=== PATIENT | female | born 1975 | race Caucasian/White ===

== ENCOUNTER 2024-06-27 09:55 | Observation (INO) ==
--- NOTE | 2024-06-27 11:11 | EKG ---
Test Reason : SURGICAL CLEARENCE Blood Pressure : */* mmHG Vent. Rate : 92 BPM Atrial Rate : 92 BPM P-R Int : 130 ms QRS Dur : 80 ms QT Int : 346 ms P-R-T Axes : 51 41 32 degrees QTc Int : 427 ms Sinus rhythm with premature atrial complexes Otherwise normal ECG No previous ECGs available Confirmed by Ke Parekh MD ([id number]) on 06/28/2024 6:08:09 AM Referred By: Confirmed By: Ke Parekh MD
[2024-06-27 11:20] LABS: INR 1.21 (0.8-1.3)
[2024-06-27 11:23] LABS: BASOPHILS # (AUTO) 0.1 X10^3/uL (0.0-0.1); BASOPHILS % (AUTO) 0.8 % (0.2-1.0); EOSINOPHILS # (AUTO) 0.1 x10^3/uL (0.0-0.2); EOSINOPHILS % (AUTO) 1.1 % (0.9-2.9); HEMATOCRIT 40.8 % (36.0-47.0); HEMOGLOBIN 13.6 g/dL (12.0-16.0); LYMPHOCYTES # (AUTO) 1.3 X10^3/uL (1.3-2.9); LYMPHOCYTES % (AUTO) 14.5 % (21.0-51.0); MEAN CORPUSCULAR HGB CONC 33.3 g/dL (33.0-35.0); MEAN CORPUSCULAR VOLUME 84.1 fL (80.0-100.0); MEAN PLATELET VOLUME 8.5 fL (7.4-11.0); MONOCYTES # (AUTO) 0.6 x10^3/uL (0.3-0.8); MONOCYTES % (AUTO) 6.3 % (0.0-13.0); NEUTROPHILS # (AUTO) 7.2 x10^3/uL (2.2-4.8); NEUTROPHILS % (AUTO) 77.3 % (42.0-75.0); PLATELET COUNT 344 X10^3/uL (150.0-450.0); RED BLOOD COUNT 4.85 X10^6/uL (3.5-5.4); RED CELL DISTRIBUTION WIDTH 16.9 % (11.6-16.5); WHITE BLOOD COUNT 9.3 X10^3/uL (3.6-10.0)
[2024-06-27 11:25] LABS: ALANINE AMINOTRANSFERASE 36 Units/L (12-78); ALBUMIN 3.4 g/dL (3.4-5.0); ALKALINE PHOSPHATASE 126 Units/L (46-116); ASPARTATE AMINO TRANSFERASE 32 Units/L (15-37); BLOOD UREA NITROGEN 10 mg/dL (7-18); CALCIUM 9.5 mg/dL (8.5-10.1); CHLORIDE 103 mmol/L (98-107); CREATININE 0.95 mg/dL (0.55-1.02); GLUCOSE 94 mg/dL (65-99); POTASSIUM 4.3 mmol/L (3.5-5.1); SODIUM 140 mmol/L (136-145); TOTAL PROTEIN 8.9 g/dL (6.4-8.2); eGFR NON BLACK RACES > 60 (>60)
[2024-06-27] MEDS: LR 1,000 ML IV 1,000 ML IV SCH (11:34)
[2024-06-27] MEDS: TORADOL 30 MG VIAL IVP PRN (12:12)
[2024-06-27 12:13] VITALS: BMI 42.7
--- NOTE | 2024-06-27 12:22 | RAD ---
EXAM:KUBHISTORY:LT OVARIAN CYST, SX CLEARENCE;COMPARISON:No relevant prior studies available.TECHNIQUE:AP supine projectionFINDINGS:Gas and stool in non-distended colon.Gas in scattered loops of non-distended small bowel.No gross free air.No abnormal calcifications.No acute osseous abnormality.Lumbosacral fusion.IMPRESSION:No acute intra-abdominal abnormality detected.Nonobstructive bowel gas patternTHIS IS AN ELECTRONICALLY VERIFIED FINAL REPORT06/27/2024 12:19 PM - Electronically signed by Gagandeep Mena MD
[2024-06-27] MEDS: ROXICODONE TAB 5 MG PO PRN (18:20)
[2024-06-28] MEDS ORDERED: CITROMA PO ONE (07:00)
--- NOTE | 2024-06-28 07:09 | RAD ---
EXAM:CHEST, 1 VIEWHISTORY:SX CLEARENCE, LEFT OVARIAN CYST;COMPARISON:NoneFINDINGS:The cardiomediastinal silhouette is normal in size.No acute airspace disease. No pneumothorax or effusion.No acute osseous abnormality.IMPRESSION:No acute cardiopulmonary disease.THIS IS AN ELECTRONICALLY VERIFIED FINAL REPORT06/28/2024 7:05 AM - Electronically signed by Bernardo Thompson MD
[2024-06-28] MEDS: CITROMA PO ONE (07:54)
--- NOTE | 2024-06-28 08:59 | DR.UPDATE ---
H&P UPDATE (1) Left ovarian cyst: History and Physical Update: Patient was found to have a large 11 to 14 cm cyst of the left ovary, and is scheduled for removal on tomorrow. She continues to have pain associated with the cyst. (2) Lower abdominal pain: History and Physical Update: Patient has pain associated with the ovarian cyst, and is being held for pain management until surgery can be scheduled tomorrow morning. She is on IV fluids, and she is getting IV Toradol, or IV Tylenol, as well as Roxicodone as needed. She will be doing a limited bowel prep today including mag citrate and clear liquids. Review Yes Any changes to H&P?: No Patient was examined?: Yes
[2024-06-28] MEDS: CITROMA ONE (10:36)
--- NOTE | 2024-06-28 11:45 | DR.PROGNOT ---
HOSPITAL PROGRESS NOTE Progress Note for Day of: Progress Note Date: 06/28/24 Chief Complaint Chief Complaint: Hospital day #1, patient has continued pain in the left lower quadrant likely due to the large ovarian cyst. History of Present Illness History of Present Illness: Since admission the patient reports passing gas, having a bowel movement, and improved pain control. Past Medical Family Social History Allergies: Allergies Iodinated Contrast Media [IVP DYE] Adverse Reaction (Verified 06/27/24 11:00) Review Of Systems ROS: No change since H&P Vital Signs Vital Signs: Vital Signs Temperature 97.9 F Pulse Rate [Left Brachial] 86 Respiratory Rate 18 Respiratory Rate 18 Respiratory Rate 17 Blood Pressure [Left Arm] 130/78 O2 Sat by Pulse Oximetry 97 Physical Exam Oriented: Normal Respiratory: Normal Cardiovascular: Normal GI:Auscultation: Normal (Bowel sounds have a normal pitch.) GI:Palpation: Other (Tenderness in the left lower quadrant but abdomen is more s oft and less distended.) Psychiatric: Normal Speech Pattern: Clear and Appropriate Laboratory and Diagnostics 06/27/24 10:43 06/27/24 10:43 Labs: Laboratory WBC 9.3 X10^3/uL (3.6-10.0) 06/27/24 10:43 RBC 4.85 X10^6/uL (3.5-5.4) 06/27/24 10:43 Hgb 13.6 g/dL (12.0-16.0) 06/27/24 10:43 Hct 40.8 % (36.0-47.0) 06/27/24 10:43 MCV 84.1 fL (80.0-100.0) 06/27/24 10:43 MCH 28.0 pg (27.0-34.0) 06/27/24 10:43 MCHC 33.3 g/dL (33.0-35.0) 06/27/24 10:43 RDW 16.9 % (11.6-16.5) H 06/27/24 10:43 Plt Count 344 X10^3/uL (150.0-450.0) 06/27/24 10:43 MPV 8.5 fL (7.4-11.0) 06/27/24 10:43 Neut % (Auto) 77.3 % (42.0-75.0) H 06/27/24 10:43 Lymph % (Auto) 14.5 % (21.0-51.0) L 06/27/24 10:43 [place] % (Auto) 6.3 % (0.0-13.0) 06/27/24 10:43 Eos % (Auto) 1.1 % (0.9-2.9) 06/27/24 10:43 Baso % (Auto) 0.8 % (0.2-1.0) 06/27/24 10:43 Neut # (Auto) 7.2 x10^3/uL (2.2-4.8) H 06/27/24 10:43 Lymph # (Auto) 1.3 X10^3/uL (1.3-2.9) 06/27/24 10:43 [place] # (Auto) 0.6 x10^3/uL (0.3-0.8) 06/27/24 10:43 Eos # (Auto) 0.1 x10^3/uL (0.0-0.2) 06/27/24 10:43 Baso # (Auto) 0.1 X10^3/uL (0.0-0.1) 06/27/24 10:43 Absolute Nucleated RBC 0.0 /100WBC 06/27/24 10:43 PT 15.0 SECONDS (11.8-14.3) 06/27/24 10:43 INR Target Range - 06/27/24 10:43 INR 1.21 (0.8-1.3) 06/27/24 10:43 APTT 30.4 SECONDS (22.9-36.5) 06/27/24 10:43 PTT Comment - 06/27/24 10:43 Sodium 140 mmol/L (136-145) 06/27/24 10:43 Corrected Sodium TNP 06/27/24 10:43 Potassium 4.3 mmol/L (3.5-5.1) 06/27/24 10:43 Chloride 103 mmol/L (98-107) 06/27/24 10:43 Carbon Dioxide 29.0 mmol/L (21-32) 06/27/24 10:43 BUN 10 mg/dL (7-18) 06/27/24 10:43 Creatinine 0.95 mg/dL (0.55-1.02) 06/27/24 10:43 Est GFR (MDRD) Af Amer > 60 (>60) 06/27/24 10:43 Est GFR (MDRD) Non-Af > 60 (>60) 06/27/24 10:43 Glucose 94 mg/dL (65-99) 06/27/24 10:43 Calcium 9.5 mg/dL (8.5-10.1) 06/27/24 10:43 Corrected Calcium TNP 06/27/24 10:43 Total Bilirubin 0.30 mg/dL (0.2-1.0) 06/27/24 10:43 AST 32 Units/L (15-37) 06/27/24 10:43 ALT 36 Units/L (12-78) 06/27/24 10:43 Alkaline Phosphatase 126 Units/L (46-116) H 06/27/24 10:43 Total Protein 8.9 g/dL (6.4-8.2) H 06/27/24 10:43 Albumin 3.4 g/dL (3.4-5.0) 06/27/24 10:43 Globulin 5.5 g/dL (2.5-4.5) H 06/27/24 10:43 Albumin/Globulin Ratio 0.6 Ratio (1.1-2.1) L 06/27/24 10:43 CA 125 Antigen Cancelled 06/26/24 15:03 Blood Type O POSITIVE 06/27/24 10:55 Antibody Screen Negative 06/27/24 10:43 Assessment and Plan 1: Left ovarian cyst 11 to 14 cm in dimension. 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 Patient is scheduled for surgery tomorrow morning at 930. Today she will be doing bowel prep. 2: Hypertension. Patient's blood pressures appear to be normal on no medications in the hospital. Continue to monitor blood pressure. 3: Body mass index of 42. Her body mass index will increase the difficulty of the surgery. Postoperatively she will have DVT precautions. 4: Left lower quadrant pain. Her pain is likely due to the cyst which is present, and she has required IV medicine which she says is helping somewhat. We will continue this medicine as needed.
[2024-06-28] MEDS: ZOFRAN INJ 4 MG VIAL IVP PRN (14:10)
[2024-06-29] MEDS ORDERED: NOZIN NASAL SANITIZER TP ONE (05:41)
[2024-06-29] MEDS: NOZIN NASAL SANITIZER TP ONE ×2 (05:51→09:00)
--- NOTE | 2024-06-29 07:28 | NOTE.OBPRE ---
Pre-op Note IT CONSULTING MANAGER (1) Left ovarian cyst: (2) Lower abdominal pain: Procedure: Planned exploratory laparotomy, with removal of cyst suspected to be in left ovary. Laboratory and Diagnositics 06/27/24 10:43 06/27/24 10:43 Labs: OB Labs WBC 9.3 X10^3/uL (3.6-10.0) 06/27/24 10:43 RBC 4.85 X10^6/uL (3.5-5.4) 06/27/24 10:43 Hgb 13.6 g/dL (12.0-16.0) 06/27/24 10:43 Hct 40.8 % (36.0-47.0) 06/27/24 10:43 MCV 84.1 fL (80.0-100.0) 06/27/24 10:43 MCH 28.0 pg (27.0-34.0) 06/27/24 10:43 MCHC 33.3 g/dL (33.0-35.0) 06/27/24 10:43 Plt Count 344 X10^3/uL (150.0-450.0) 06/27/24 10:43 PT 15.0 SECONDS (11.8-14.3) 06/27/24 10:43 INR 1.21 (0.8-1.3) 06/27/24 10:43 APTT 30.4 SECONDS (22.9-36.5) 06/27/24 10:43 Sodium 140 mmol/L (136-145) 06/27/24 10:43 Potassium 4.3 mmol/L (3.5-5.1) 06/27/24 10:43 Chloride 103 mmol/L (98-107) 06/27/24 10:43 Carbon Dioxide 29.0 mmol/L (21-32) 06/27/24 10:43 BUN 10 mg/dL (7-18) 06/27/24 10:43 Creatinine 0.95 mg/dL (0.55-1.02) 06/27/24 10:43 Glucose 94 mg/dL (65-99) 06/27/24 10:43 Blood Type O POSITIVE 06/27/24 10:55 Summary: Patient understands procedure/risks/benefits/alternatives. Strongly desires to proceed. Consent SOC.
[2024-06-29] MEDS: OFIRMEV IV 1000 MG VIAL 1,000 MG/100 ML VIAL IV PRN ×2 (08:28→11:30)
[2024-06-29] MEDS: LR 1,000 ML IV 1,000 ML IV ONE (09:00)
[2024-06-29] MEDS: DUONEB 0.5 MG/3 MG (3 mL) NEB ONE (09:25)
[2024-06-29] MEDS: PEPCID 20 MG VIAL IVP PRN (09:34)
[2024-06-29] MEDS: ZOFRAN INJ 4 MG VIAL IVP PRN (09:34)
[2024-06-29] MEDS: REGLAN INJ 10 MG VIAL IVP PRN (09:34)
[2024-06-29] MEDS: DANTRIUM IVP PRN (09:34)
[2024-06-29] MEDS: VERSED IVP PRN (09:34)
[2024-06-29] MEDS ORDERED: ZOFRAN INJ 4 MG VIAL IVP PRN ×2 (09:40→12:11)
[2024-06-29] MEDS ORDERED: BENADRYL INJ 50 MG VIAL IVP PRN (09:40)
[2024-06-29] MEDS ORDERED: REGLAN INJ 10 MG VIAL IVP PRN (09:40)
[2024-06-29] MEDS: LR 1,000 ML IV 1,300 ML IV PRN (09:45)
[2024-06-29] MEDS: ANCEF VIAL 1 GRAM IV PRN (10:05)
[2024-06-29] MEDS: ANCEF VIAL 1 GRAM ONE (10:07)
[2024-06-29] MEDS: NS 100 ML IV 100 ML ONE (10:07)
[2024-06-29] MEDS: ZOFRAN INJ 4 MG VIAL ONE (10:09)
[2024-06-29] MEDS ORDERED: ULTANE GAS IN ONE (10:09)
[2024-06-29] MEDS: DECADRON INJ ONE (10:09)
[2024-06-29] MEDS: VERSED ONE (10:09)
[2024-06-29] MEDS ORDERED: KETAMINE HCL ONE (10:09)
[2024-06-29] MEDS ORDERED: PRECEDEX INJ VIAL ONE (10:09)
[2024-06-29] MEDS: FENTANYL VIAL INJ 100 mcg ONE ×2 (10:09→10:40)
[2024-06-29] MEDS: REGLAN INJ 10 MG VIAL ONE (10:09)
[2024-06-29] MEDS: ZEMURON 100 MG VIAL ONE (10:09)
[2024-06-29] MEDS: DIPRIVAN VIAL 20 ML ONE (10:09)
[2024-06-29] MEDS: BRIDION ONE ×2 (10:09→11:14)
[2024-06-29] MEDS: BARHEMSYS INJ ONE ×2 (10:09)
[2024-06-29] MEDS: BENADRYL INJ 50 MG VIAL ONE (10:09)
[2024-06-29] MEDS: PEPCID 20 MG VIAL ONE (10:09)
[2024-06-29] MEDS ORDERED: XYLOCAINE 2 % (PLAIN) PRN (10:17)
[2024-06-29] MEDS: KETAMINE HCL IV PRN (10:34)
[2024-06-29] MEDS: DECADRON INJ IVP PRN (10:41)
[2024-06-29] MEDS: PRECEDEX INJ VIAL IVP PRN (10:42)
[2024-06-29] MEDS: FENTANYL VIAL INJ 100 mcg IVP PRN (10:46)
[2024-06-29] MEDS: OFIRMEV IV 1000 MG VIAL 1,000 MG/100 ML VIAL IV ONE (10:57)
[2024-06-29] MEDS: TORADOL 30 MG VIAL ONE (10:57)
[2024-06-29] MEDS: TORADOL 30 MG VIAL IVP PRN (10:58)
[2024-06-29] MEDS: ZEMURON 100 MG VIAL IVP PRN (10:59)
[2024-06-29] MEDS: DIPRIVAN VIAL 200 ML IVP PRN (11:42)
[2024-06-29] MEDS: BRIDION IVP PRN (11:49)
[2024-06-29] MEDS: DILAUDID INJ ONE (12:07)
[2024-06-29] MEDS: DILAUDID INJ IVP PRN ×2 (12:17→12:42)
[2024-06-29] MEDS ORDERED: OFIRMEV IV 1000 MG VIAL 1,000 MG/100 ML VIAL IV PRN (12:19)
--- NOTE | 2024-06-29 12:37 | OR.IMMED ---
IMMEDIATE POST-OP NOTE Immediate Post-Op Note Pre-Op Diagnosis: Left ovarian cyst Procedure: Exploratory laparotomy with removal of left ovary and uterine biopsy Description of Procedure: Exploratory laparotomy with vertical incision, removal of left ovary, biopsy of uterine fundal serosa. Surgeon/Box Worker: Pascale Nguyen MD PRINT SHOP MANAGER, Adonis Carbajal MD General Surgery co-surgeon Findings: Torsed left ovary, inflammation of the uterine serosa Specimens Removed: Left ovary, uterine biopsy Estimated Blood Loss: 50 cc Drains: Catheter (NG tube ) Complications: None Progress Notes: Patient transported to recovery in stable condition Post Hospital Plans and Medications: Torsion of left ovary
[2024-06-29] MEDS ORDERED: DILAUDID INJ ONE (12:41)
--- NOTE | 2024-06-29 13:04 | OB.OPNOTE ---
Op Note-NEWSPAPER VENDOR Date Date of Exam: 06/29/24 (1) Left ovarian cyst: (2) Lower abdominal pain: Post-Op Diagnosis: Left ovarian torsion Procedure: Exploratory laparotomy, left oophorectomy, uterine serosal biopsy Type of Anesthesia: General Anesthetic w/ETT Surgeon: Pascale Nguyen MD Gynecology, and Adonis Carbajal MD General Surgery EBL: 50 cc Type of Fluids Used:: Lactated Ringers Total Amount of Fluid Infused:: 1300 Urine output: 450 cc Complications:: None Drains/Tubes Placed: Watson and NG tube Specimen: Left ovary, uterine fundal biopsy Findings: Left ovary, cyanotic with large cyst and torsion. Operative technique: The patient was taken to the operating room with IV running and was placed in the dorsal supine position. General anesthesia was administered. A time out was obtained. The incision was marked in the midline, and made with the scalpel, extending from the symphysis pubis to the umbilicus. The incision was then carried down to the fascia with the Bovie in cautery mode. The fascia was incised with the Bovie. The peritoneum was held with 2 hemostats and entered with the Metzenbaum scissors. Opening cytology was collected to be sent to pathology. A large cyanotic ovary was delivered through this incision, and the pedicle was found to be torsed at least two turns, and this vascular pedicle was then easily clamped with [address] Carbajal, cut, and passed off to be sent to pathology. The uterus and right ovary were inspected and found to be normal in appearance. However, there was some non-specific and very small nodularity found on the uterine serosa and this was biopsied by Dr. Carbajal. All operative sites were found to be hemostatic. The closure of the fascia was done with 2 looped PDF sutures, incorporating both the fascia and the peritoneum, closing from each angle toward the center. This suture was then tied. The subcutaneous tissue was then blotted dry and closed with 2 layers of 3-0 vicryl in a mattress fashion. The skin was then closed with micaela. The patient was extubated without difficulty and transported to PACU in stable condition.
[2024-06-29] MEDS: ROXICODONE TAB 5 MG PO PRN (22:24)
[2024-06-30 05:22] LABS: BASOPHILS % (AUTO) 0.2 % (0.2-1.0); HEMATOCRIT 33.1 % (36.0-47.0); LYMPHOCYTES % (AUTO) 11.3 % (21.0-51.0); MEAN CORPUSCULAR HEMOGLOBIN 27.7 pg (27.0-34.0); MEAN CORPUSCULAR HGB CONC 33.2 g/dL (33.0-35.0); MEAN CORPUSCULAR VOLUME 83.5 fL (80.0-100.0); MEAN PLATELET VOLUME 7.8 fL (7.4-11.0); MONOCYTES # (AUTO) 0.4 x10^3/uL (0.3-0.8); MONOCYTES % (AUTO) 4.6 % (0.0-13.0); NEUTROPHILS # (AUTO) 7.2 x10^3/uL (2.2-4.8); NEUTROPHILS % (AUTO) 83.9 % (42.0-75.0); PLATELET COUNT 294 X10^3/uL (150.0-450.0); RED BLOOD COUNT 3.97 X10^6/uL (3.5-5.4); RED CELL DISTRIBUTION WIDTH 16.1 % (11.6-16.5); WHITE BLOOD COUNT 8.5 X10^3/uL (3.6-10.0)
--- NOTE | 2024-06-30 09:50 | PCM.PROG ---
Progress Note Progress Note for Day of Date of Exam: 06/30/24 Subjective Subjective: Taking good amount of fluid, and ate some breakfast. Still having some left sided pain. Incision pain. Passing flatus. No CP, no SOB. Took Ofirmev and Roxicodone overnight x 2. Past Medical Family Social History Allergies: Allergies Iodinated Contrast Media [IVP DYE] Adverse Reaction (Verified 06/27/24 11:00) Review of Systems ROS: No change since H&P Vital Signs and I&O's Vital Signs: Vital Signs Temperature 98.2 F Pulse Rate [Right Brachial] 84 Respiratory Rate 14 Respiratory Rate 18 Respiratory Rate 20 Blood Pressure [Right Arm] 116/61 O2 Sat by Pulse Oximetry 92 Intake and Output: Intake & Output 06/27/24 06/28/24 06/29/24 06/30/24 23:59 23:59 23:59 23:59 Intake Total 3064 / 3064 3471 / 3471 75626 / 57236 Output Total 4200 / 4200 Balance 3064 / 3064 3471 / 3471 5842 / 5842 Physical Exam Oriented: Normal Respiratory: Normal Cardiovascular: Normal Auscultation: Bowel Sounds: Normal (Bowel sounds have a normal pitch.) Palpation: Other (Still appears somewhat distended. Appropriate tender. ) Musculoskeletal: Normal (Extremities no edema ) Psychiatric: Normal Mood Description: Calm Speech Pattern: Clear and Appropriate Laboratory and Diagnostics 06/30/24 04:38 06/27/24 10:43 Labs: Laboratory WBC 8.5 X10^3/uL (3.6-10.0) 06/30/24 04:38 RBC 3.97 X10^6/uL (3.5-5.4) 06/30/24 04:38 Hgb 11.0 g/dL (12.0-16.0) L D 06/30/24 04:38 Hct 33.1 % (36.0-47.0) L 06/30/24 04:38 MCV 83.5 fL (80.0-100.0) 06/30/24 04:38 MCH 27.7 pg (27.0-34.0) 06/30/24 04:38 MCHC 33.2 g/dL (33.0-35.0) 06/30/24 04:38 RDW 16.1 % (11.6-16.5) 06/30/24 04:38 Plt Count 294 X10^3/uL (150.0-450.0) 06/30/24 04:38 MPV 7.8 fL (7.4-11.0) 06/30/24 04:38 Neut % (Auto) 83.9 % (42.0-75.0) H 06/30/24 04:38 Lymph % (Auto) 11.3 % (21.0-51.0) L 06/30/24 04:38 [place] % (Auto) 4.6 % (0.0-13.0) 06/30/24 04:38 Eos % (Auto) 0.0 % (0.9-2.9) L 06/30/24 04:38 Baso % (Auto) 0.2 % (0.2-1.0) 06/30/24 04:38 Neut # (Auto) 7.2 x10^3/uL (2.2-4.8) H 06/30/24 04:38 Lymph # (Auto) 1.0 X10^3/uL (1.3-2.9) L 06/30/24 04:38 [place] # (Auto) 0.4 x10^3/uL (0.3-0.8) 06/30/24 04:38 Eos # (Auto) 0.0 x10^3/uL (0.0-0.2) 06/30/24 04:38 Baso # (Auto) 0.0 X10^3/uL (0.0-0.1) 06/30/24 04:38 Absolute Nucleated RBC 0.0 /100WBC 06/30/24 04:38 PT 15.0 SECONDS (11.8-14.3) 06/27/24 10:43 INR Target Range - 06/27/24 10:43 INR 1.21 (0.8-1.3) 06/27/24 10:43 APTT 30.4 SECONDS (22.9-36.5) 06/27/24 10:43 PTT Comment - 06/27/24 10:43 Sodium 140 mmol/L (136-145) 06/27/24 10:43 Corrected Sodium TNP 06/27/24 10:43 Potassium 4.3 mmol/L (3.5-5.1) 06/27/24 10:43 Chloride 103 mmol/L (98-107) 06/27/24 10:43 Carbon Dioxide 29.0 mmol/L (21-32) 06/27/24 10:43 BUN 10 mg/dL (7-18) 06/27/24 10:43 Creatinine 0.95 mg/dL (0.55-1.02) 06/27/24 10:43 Est GFR (MDRD) Af Amer > 60 (>60) 06/27/24 10:43 Est GFR (MDRD) Non-Af > 60 (>60) 06/27/24 10:43 Glucose 94 mg/dL (65-99) 06/27/24 10:43 Calcium 9.5 mg/dL (8.5-10.1) 06/27/24 10:43 Corrected Calcium TNP 06/27/24 10:43 Total Bilirubin 0.30 mg/dL (0.2-1.0) 06/27/24 10:43 AST 32 Units/L (15-37) 06/27/24 10:43 ALT 36 Units/L (12-78) 06/27/24 10:43 Alkaline Phosphatase 126 Units/L (46-116) H 06/27/24 10:43 Total Protein 8.9 g/dL (6.4-8.2) H 06/27/24 10:43 Albumin 3.4 g/dL (3.4-5.0) 06/27/24 10:43 Globulin 5.5 g/dL (2.5-4.5) H 06/27/24 10:43 Albumin/Globulin Ratio 0.6 Ratio (1.1-2.1) L 06/27/24 10:43 CA 125 Antigen Cancelled 06/26/24 15:03 Blood Type O POSITIVE 06/27/24 10:55 Antibody Screen Negative 06/27/24 10:43 Plan (1) Left ovarian cyst: Status: Resolved Narrative Support Text: Status post exploratory lap POD #1. (2) Lower abdominal pain: Status: Resolved Narrative Support Text: Pain associated with cyst resolved. Now post op pain due to surgery. (3) History of left salpingo-oophorectomy: Status: Acute Narrative Support Text: Post op day 1, status post exploratory lap with removal of large left ovarian ovary with cyst. Plan: Continue with plan as outlined in orders. DC alejandre. IV out may DC for the time being. Possible DC tomorrow.
[2024-06-30] MEDS: PERCOCET TAB 5/325 MG PO PRN (10:12)
[2024-06-30] MEDS: MOTRIN TAB 800 MG PO PRN (13:42)
[2024-07-01 00:09] VITALS: O2SAT 96
[2024-07-01 06:15] LABS: BASOPHILS % (AUTO) 0.3 % (0.2-1.0); EOSINOPHILS % (AUTO) 0.4 % (0.9-2.9); HEMATOCRIT 32.3 % (36.0-47.0); HEMOGLOBIN 10.8 g/dL (12.0-16.0); LYMPHOCYTES % (AUTO) 29.4 % (21.0-51.0); MEAN CORPUSCULAR HEMOGLOBIN 27.5 pg (27.0-34.0); MEAN CORPUSCULAR HGB CONC 33.4 g/dL (33.0-35.0); MEAN CORPUSCULAR VOLUME 82.3 fL (80.0-100.0); MEAN PLATELET VOLUME 7.8 fL (7.4-11.0); MONOCYTES # (AUTO) 0.4 x10^3/uL (0.3-0.8); MONOCYTES % (AUTO) 5.9 % (0.0-13.0); NEUTROPHILS # (AUTO) 4.4 x10^3/uL (2.2-4.8); PLATELET COUNT 304 X10^3/uL (150.0-450.0); RED BLOOD COUNT 3.93 X10^6/uL (3.5-5.4); RED CELL DISTRIBUTION WIDTH 16.8 % (11.6-16.5); WHITE BLOOD COUNT 6.9 X10^3/uL (3.6-10.0)
[2024-07-01 08:32] VITALS: BP 140/84; PULSE 86; TEMP 97.3
--- NOTE | 2024-07-01 09:11 | W.DIS.FURT ---
Summary of Discharge Discharge Summary of Date Date of Exam: 07/01/24 Admission Date Date of Admission: 06/27/24 Admission Diagnosis Hospital Course: 49 year old, G1, P1, now status post laparotomy with left oophorectomy due to large cyst with torsion. Initially admitted for pain control, and subsequently for surgery and post op management. Remains stable. Has experience some drainage from the wound of serosanguinous fluid. Pain meds sent to her pharmacy. Vital Signs: Vital Signs (72 hours) 06/28/24 09:43 06/28/24 12:00 06/28/24 12:36 Temperature 97.7 F Pulse Rate 92 H Pulse Rate [Left Brachial] 94 H Pulse Rate [Right Brachial] Respiratory Rate 18 18 Blood Pressure Blood Pressure [Left Arm] 112/70 Blood Pressure [Right Arm] O2 Sat by Pulse Oximetry 98 95 Oxygen Delivery Method Room Air Oxygen Flow Rate FIO2% 06/28/24 13:06 06/28/24 16:00 06/28/24 19:00 Temperature 97.8 F Pulse Rate Pulse Rate [Left Brachial] 84 Pulse Rate [Right Brachial] Respiratory Rate 18 18 Blood Pressure Blood Pressure [Left Arm] 108/67 Blood Pressure [Right Arm] O2 Sat by Pulse Oximetry 94 L Oxygen Delivery Method Room Air Room Air Oxygen Flow Rate FIO2% 06/28/24 20:00 06/28/24 22:06 06/29/24 00:00 Temperature 97.9 F 98.1 F Pulse Rate Pulse Rate [Left Brachial] 90 101 H Pulse Rate [Right Brachial] Respiratory Rate 18 20 20 Blood Pressure Blood Pressure [Left Arm] 142/75 142/77 Blood Pressure [Right Arm] O2 Sat by Pulse Oximetry 100 97 Oxygen Delivery Method Room Air Room Air Oxygen Flow Rate FIO2% 06/28/24 23:06 06/29/24 04:00 06/29/24 07:00 Temperature 98.0 F Pulse Rate Pulse Rate [Left Brachial] 94 H Pulse Rate [Right Brachial] Respiratory Rate 20 18 Blood Pressure Blood Pressure [Left Arm] 127/75 Blood Pressure [Right Arm] O2 Sat by Pulse Oximetry 95 Oxygen Delivery Method Room Air Room Air Oxygen Flow Rate FIO2% 06/29/24 08:00 06/29/24 08:50 06/29/24 10:57 Temperature 97.7 F Pulse Rate 70 Pulse Rate [Left Brachial] 89 Pulse Rate [Right Brachial] Respiratory Rate 20 14 18 Blood Pressure 123/82 Blood Pressure [Left Arm] 123/71 Blood Pressure [Right Arm] O2 Sat by Pulse Oximetry 97 100 Oxygen Delivery Method Room Air Room Air Oxygen Flow Rate FIO2% 06/29/24 12:15 06/29/24 12:20 06/29/24 12:25 Temperature 97 F L Pulse Rate 100 H 98 H 99 H Pulse Rate [Left Brachial] Pulse Rate [Right Brachial] Respiratory Rate 16 16 18 Blood Pressure 140/86 141/83 143/84 Blood Pressure [Left Arm] Blood Pressure [Right Arm] O2 Sat by Pulse Oximetry 96 96 96 Oxygen Delivery Method Oxy Mask Oxy Mask Oxy Mask Oxygen Flow Rate FIO2% 06/29/24 12:30 06/29/24 12:35 06/29/24 12:40 Temperature Pulse Rate 103 H 101 H 99 H Pulse Rate [Left Brachial] Pulse Rate [Right Brachial] Respiratory Rate 18 18 18 Blood Pressure 143/84 136/84 140/83 Blood Pressure [Left Arm] Blood Pressure [Right Arm] O2 Sat by Pulse Oximetry 96 96 95 Oxygen Delivery Method Oxy Mask Nasal Cannula Nasal Cannula Oxygen Flow Rate FIO2% 06/29/24 12:07 06/29/24 12:42 06/29/24 12:45 Temperature Pulse Rate 97 H Pulse Rate [Left Brachial] Pulse Rate [Right Brachial] Respiratory Rate 20 18 18 Blood Pressure 148/86 Blood Pressure [Left Arm] Blood Pressure [Right Arm] O2 Sat by Pulse Oximetry 95 Oxygen Delivery Method Nasal Cannula Oxygen Flow Rate FIO2% 06/29/24 12:55 06/29/24 13:10 06/29/24 13:25 Temperature 97.5 F L 97.4 F L 97.6 F Pulse Rate Pulse Rate [Left Brachial] 100 H 93 H 96 H Pulse Rate [Right Brachial] Respiratory Rate 14 16 18 Blood Pressure Blood Pressure [Left Arm] 144/83 132/77 148/91 Blood Pressure [Right Arm] O2 Sat by Pulse Oximetry 95 92 L 95 Oxygen Delivery Method Oxygen Flow Rate FIO2% 06/29/24 13:40 06/29/24 13:55 06/29/24 14:55 Temperature 97.7 F 97.9 F 97.8 F Pulse Rate Pulse Rate [Left Brachial] 88 88 91 H Pulse Rate [Right Brachial] Respiratory Rate 18 18 18 Blood Pressure Blood Pressure [Left Arm] 138/85 143/85 139/85 Blood Pressure [Right Arm] O2 Sat by Pulse Oximetry 96 96 95 Oxygen Delivery Method Oxygen Flow Rate FIO2% 06/29/24 15:55 06/29/24 16:55 06/29/24 17:55 Temperature 97.5 F L 97.5 F L 97.5 F L Pulse Rate Pulse Rate [Left Brachial] 88 84 90 Pulse Rate [Right Brachial] Respiratory Rate 20 20 18 Blood Pressure Blood Pressure [Left Arm] 137/81 142/83 135/77 Blood Pressure [Right Arm] O2 Sat by Pulse Oximetry 95 97 96 Oxygen Delivery Method Oxygen Flow Rate FIO2% 06/29/24 19:27 06/29/24 19:00 06/29/24 20:00 Temperature 98.3 F Pulse Rate Pulse Rate [Left Brachial] Pulse Rate [Right Brachial] 85 Respiratory Rate 24 16 Blood Pressure Blood Pressure [Left Arm] Blood Pressure [Right Arm] 119/71 O2 Sat by Pulse Oximetry 95 Oxygen Delivery Method Room Air Nasal Cannula Oxygen Flow Rate 3 FIO2% 06/29/24 22:24 06/29/24 23:24 06/29/24 19:57 Temperature Pulse Rate Pulse Rate [Left Brachial] Pulse Rate [Right Brachial] Respiratory Rate 20 18 18 Blood Pressure Blood Pressure [Left Arm] Blood Pressure [Right Arm] O2 Sat by Pulse Oximetry Oxygen Delivery Method Oxygen Flow Rate FIO2% 06/30/24 00:00 06/30/24 05:48 06/30/24 04:00 Temperature 98.2 F 97.8 F Pulse Rate Pulse Rate [Left Brachial] 85 Pulse Rate [Right Brachial] 84 Respiratory Rate 14 20 18 Blood Pressure Blood Pressure [Left Arm] 138/71 Blood Pressure [Right Arm] 116/61 O2 Sat by Pulse Oximetry 92 L 96 Oxygen Delivery Method Nasal Cannula Nasal Cannula Oxygen Flow Rate 3 3 FIO2% 06/30/24 06:48 06/30/24 10:12 06/30/24 07:00 Temperature Pulse Rate Pulse Rate [Left Brachial] Pulse Rate [Right Brachial] Respiratory Rate 18 16 Blood Pressure Blood Pressure [Left Arm] Blood Pressure [Right Arm] O2 Sat by Pulse Oximetry Oxygen Delivery Method Room Air Oxygen Flow Rate FIO2% 06/30/24 08:00 06/30/24 13:42 06/30/24 18:09 Temperature 98.3 F Pulse Rate Pulse Rate [Left Brachial] 97 H Pulse Rate [Right Brachial] Respiratory Rate 20 18 18 Blood Pressure Blood Pressure [Left Arm] 123/75 Blood Pressure [Right Arm] O2 Sat by Pulse Oximetry 96 Oxygen Delivery Method Room Air Oxygen Flow Rate FIO2% 06/30/24 12:00 06/30/24 16:00 06/30/24 11:12 Temperature 98.2 F 98.1 F Pulse Rate Pulse Rate [Left Brachial] 90 88 Pulse Rate [Right Brachial] Respiratory Rate 19 20 20 Blood Pressure Blood Pressure [Left Arm] 124/80 124/80 Blood Pressure [Right Arm] 120/76 O2 Sat by Pulse Oximetry 97 97 Oxygen Delivery Method Room Air Room Air Oxygen Flow Rate FIO2% 06/30/24 14:42 06/30/24 19:09 06/30/24 20:00 Temperature 97.4 F L Pulse Rate Pulse Rate [Left Brachial] Pulse Rate [Right Brachial] 88 Respiratory Rate 20 17 20 Blood Pressure Blood Pressure [Left Arm] 127/70 Blood Pressure [Right Arm] O2 Sat by Pulse Oximetry 95 Oxygen Delivery Method Room Air Oxygen Flow Rate FIO2% 21 06/30/24 19:00 07/01/24 00:00 07/01/24 00:00 Temperature 97.9 F Pulse Rate Pulse Rate [Left Brachial] Pulse Rate [Right Brachial] 78 Respiratory Rate 18 18 Blood Pressure Blood Pressure [Left Arm] 133/78 Blood Pressure [Right Arm] O2 Sat by Pulse Oximetry 96 Oxygen Delivery Method Room Air Room Air Oxygen Flow Rate FIO2% 07/01/24 01:00 07/01/24 04:00 07/01/24 06:38 Temperature 98.1 F Pulse Rate Pulse Rate [Left Brachial] Pulse Rate [Right Brachial] 85 Respiratory Rate 18 18 18 Blood Pressure Blood Pressure [Left Arm] Blood Pressure [Right Arm] O2 Sat by Pulse Oximetry 96 Oxygen Delivery Method Room Air Oxygen Flow Rate FIO2% 07/01/24 07:00 07/01/24 08:00 07/01/24 07:38 Temperature 97.3 F L Pulse Rate Pulse Rate [Left Brachial] Pulse Rate [Right Brachial] 86 Respiratory Rate 20 18 Blood Pressure Blood Pressure [Left Arm] 140/84 Blood Pressure [Right Arm] O2 Sat by Pulse Oximetry 96 Oxygen Delivery Method Room Air Room Air Oxygen Flow Rate FIO2% Labs: Laboratory Last Values WBC 6.9 X10^3/uL (3.6-10.0) 07/01/24 05:09 RBC 3.93 X10^6/uL (3.5-5.4) 07/01/24 05:09 Hgb 10.8 g/dL (12.0-16.0) L 07/01/24 05:09 Hct 32.3 % (36.0-47.0) L 07/01/24 05:09 MCV 82.3 fL (80.0-100.0) 07/01/24 05:09 MCH 27.5 pg (27.0-34.0) 07/01/24 05:09 MCHC 33.4 g/dL (33.0-35.0) 07/01/24 05:09 RDW 16.8 % (11.6-16.5) H 07/01/24 05:09 Plt Count 304 X10^3/uL (150.0-450.0) 07/01/24 05:09 MPV 7.8 fL (7.4-11.0) 07/01/24 05:09 Neut % (Auto) 64.0 % (42.0-75.0) 07/01/24 05:09 Lymph % (Auto) 29.4 % (21.0-51.0) 07/01/24 05:09 [place] % (Auto) 5.9 % (0.0-13.0) 07/01/24 05:09 Eos % (Auto) 0.4 % (0.9-2.9) L 07/01/24 05:09 Baso % (Auto) 0.3 % (0.2-1.0) 07/01/24 05:09 Neut # (Auto) 4.4 x10^3/uL (2.2-4.8) 07/01/24 05:09 Lymph # (Auto) 2.0 X10^3/uL (1.3-2.9) 07/01/24 05:09 [place] # (Auto) 0.4 x10^3/uL (0.3-0.8) 07/01/24 05:09 Eos # (Auto) 0.0 x10^3/uL (0.0-0.2) 07/01/24 05:09 Baso # (Auto) 0.0 X10^3/uL (0.0-0.1) 07/01/24 05:09 Absolute Nucleated RBC 0.1 /100WBC 07/01/24 05:09 PT 15.0 SECONDS (11.8-14.3) 06/27/24 10:43 INR Target Range - 06/27/24 10:43 INR 1.21 (0.8-1.3) 06/27/24 10:43 APTT 30.4 SECONDS (22.9-36.5) 06/27/24 10:43 PTT Comment - 06/27/24 10:43 Sodium 140 mmol/L (136-145) 06/27/24 10:43 Corrected Sodium TNP 06/27/24 10:43 Potassium 4.3 mmol/L (3.5-5.1) 06/27/24 10:43 Chloride 103 mmol/L (98-107) 06/27/24 10:43 Carbon Dioxide 29.0 mmol/L (21-32) 06/27/24 10:43 BUN 10 mg/dL (7-18) 06/27/24 10:43 Creatinine 0.95 mg/dL (0.55-1.02) 06/27/24 10:43 Est GFR (MDRD) Af Amer > 60 (>60) 06/27/24 10:43 Est GFR (MDRD) Non-Af > 60 (>60) 06/27/24 10:43 Glucose 94 mg/dL (65-99) 06/27/24 10:43 Calcium 9.5 mg/dL (8.5-10.1) 06/27/24 10:43 Corrected Calcium TNP 06/27/24 10:43 Total Bilirubin 0.30 mg/dL (0.2-1.0) 06/27/24 10:43 AST 32 Units/L (15-37) 06/27/24 10:43 ALT 36 Units/L (12-78) 06/27/24 10:43 Alkaline Phosphatase 126 Units/L (46-116) H 06/27/24 10:43 Total Protein 8.9 g/dL (6.4-8.2) H 06/27/24 10:43 Albumin 3.4 g/dL (3.4-5.0) 06/27/24 10:43 Globulin 5.5 g/dL (2.5-4.5) H 06/27/24 10:43 Albumin/Globulin Ratio 0.6 Ratio (1.1-2.1) L 06/27/24 10:43 CA 125 Antigen Cancelled 06/26/24 15:03 Blood Type O POSITIVE 06/27/24 10:55 Antibody Screen Negative 06/27/24 10:43 Reason For Visit: LEFT OVARIAN CYST Discharge Date Discharge Date: 07/01/24 Discharge Diagnosis All Active Problems (Updated 07/01/24 @ 08:55 by Pascale Nguyen MD) History of left salpingo-oophorectomy (Acute) Plan of Treatment: Continue with present treatment and follow up plan. Pt is to keep follow up appointment as instructed and take medications as ordered. Discharge Medications Discharge Medications: Iodinated Contrast Media [IVP DYE] Adverse Reaction (Verified 06/27/24 11:00) CONTINUE taking the following medications ciprofloxacin HCl 500 mg tablet 500 mg PO BID 06/27/24 [History] cyclobenzaprine 5 mg tablet 5 mg PO HS 06/27/24 [History] gabapentin 300 mg capsule 300 mg PO HS PRN 06/27/24 [History] ketorolac 10 mg tablet 10 mg PO Q6H PRN 06/27/24 [History] lisinopril 20 mg-hydrochlorothiazide 12.5 mg tablet 1 tab PO QAM 06/27/24 [History] pantoprazole 40 mg tablet,delayed release 40 mg PO BID 06/27/24 [History] tamsulosin 0.4 mg capsule 0.4 mg PO QDAY 06/27/24 [History] New Prescriptions ibuprofen 800 mg tablet 800 mg PO Q8H PRN 30 days #30 tabs 06/30/24 [Rx] oxycodone-acetaminophen 5 mg-325 mg tablet 1 tab PO Q6H PRN 7 days #28 tabs 06/30/24 [Rx] Discharge Plan Discharge Plan Hospital Course: 49 year old, G1, P1, now status post laparotomy with left oophorectomy due to large cyst with torsion. Initially admitted for pain control, and subsequently for surgery and post op management. Remains stable. Has experience some drainage from the wound of serosanguinous fluid. Pain meds sent to her pharmacy. Patient Disposition: 01 HOME, SELF-CARE Condition: Stable Health Concerns: Post Hospitalization: new medications and changes needed to prevent readmission or further decline. Pt educated and given instructions on all concerns. Care Plan Goals: Problem: Pain/Alteration in Comfort Goal: Improve/ Resolve Pain; Achieve Pain Tolerance Instructions: Take pain medications as prescribed. Contact your primary care provider if your pain is unrelieved or worsens. Follow up with primary care provider as directed. Plan of Treatment: Continue with present treatment and follow up plan. Pt is to keep follow up appointment as instructed and take medications as ordered. Prescriptions: New ibuprofen 800 mg Tablet 800 mg PO Q8H PRN30 Days Qty: 30 1RF oxycodone-acetaminophen 5-325 mg Tablet 1 tab PO Q6H MDD 4 PRN7 Days Qty: 28 0RF Continued lisinopril-hydrochlorothiazide 20-12.5 mg tablet 1 tab PO QAM tamsulosin 0.4 mg capsule 0.4 mg PO QDAY pantoprazole 40 mg tablet,delayed release (DR/EC) 40 mg PO BID gabapentin 300 mg capsule 300 mg PO HS PRN cyclobenzaprine 5 mg tablet 5 mg PO HS Discontinued ciprofloxacin HCl 500 mg tablet 500 mg PO BID ketorolac 10 mg tablet 10 mg PO Q6H PRN Orders to Discharge Patient Discharge Orders: Discharge (Routine); Ordered 07/01/24 Ordered By: Pascale Nguyen Follow ups/Referrals Follow ups/Referrals: Pascale Nguyen MD [STAFF PHYSICIAN] - 1 WEEK JACI GONZALEZ [Primary Care Provider] - None (As needed ) Instructions Stand Alone Forms: Excuse From Work or School, Find Help Web Site, Post Hospital Follow Up Care
[2024-07-01 09:17] VITALS: RESP 19
== END 2024-07-01 09:33 | disposition home or self-care (01) ==
LOC: MED/SURG → MERGE 09:59
PROVIDERS: ADMIT Obstetrics & Gynecology; ATTEND Obstetrics & Gynecology
DX: N83.202 Unspecified ovarian cyst, left side; Z01.810 Encounter for preprocedural cardiovascular examination; R10.30 Lower abdominal pain, unspecified; R74.8 Abnormal levels of other serum enzymes; Z65.8 Other specified problems related to psychosocial circumstances